=== PATIENT | male | born 1960 | race African-American/Black ===

== ENCOUNTER 2017-09-07 10:35 | Outpatient (CLI) | payer OTHER ==
[2017-09-07] MEDS ORDERED: Lidocaine 1% PF 10 ML AMP ONE (11:30)
[2017-09-07] MEDS ORDERED: Iopamidol 300 61% 50 ML VIAL FS ONE (11:30)
[2017-09-07] MEDS ORDERED: EPINEPHrine 1 MG/ML AMP ONE (11:30)
[2017-09-07] MEDS ORDERED: Gadobenate Dimeglumine 529 MG/1 ML (20ML VIAL) ONE ×2 (11:30→13:45)
--- NOTE | 2017-09-07 12:44 | RAD ---
ARTHROGRAM RIGHT SHOULDER: History: Internal derangement right shoulder. FINDINGS: [employer] radiographs show prominent osteophytosis of the inferior glenoid with some fragmentation. There are prominent degenerative changes of the undersurface of the acromion. After explaining the procedure and answering all question, the anterior aspect of the right shoulder was prepped and draped in the usual sterile fashion. Sterile technique, buffered local anesthesia, fl uoroscopic guidance and an anterior approach were used to carefully advance a 22 gauge needle into th e joint capsule at the level of the humeral head. Approximately 10 cc of a liquid mixture containing normal saline, 1% Lidocaine, iodinated contrast, and small amounts of gadolinium and epinephrine were then instilled into the joint capsule under fluoroscopic control. Needle was removed and spot images were obtained. The patient tolerated the procedure well and was sent to MRI in good condition for fu rther imaging. IMPRESSION: Technically successful right shoulder arthrogram revealing no full thickness rotator cuff tear. Post arthrogram MRI is pending. POS: [facility]
--- NOTE | 2017-09-07 15:17 | MRI ---
MRI RIGHT SHOULDER WITH CONTRAST: HISTORY: Pain. M25.51. COMPARISON: None. FINDINGS: BICEPS TENDON: There is interarticular interstitial tearing of the biceps tendon. This extends into the anterior la julieta. There is evidence of prior injury to the posterior inferior labrum. ROTATOR CUFF: There is a high-grade 50-75% undersurface tear of the mid supraspinatus tendon measuring 11 mm in AP dimension with fibers retracted to the mid humeral head. There is interstitial delamination of this tear along the myotendinous junction. There is also extensive deep undersurface tearing and retracti on cyst of the infraspinatus tendon. BONES: No fracture. No malalignment. Large traction cyst of the greater tuberosity. 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 MUSCLES: No significant muscle atrophy. IMPRESSION: 1. Extensive tearing of the intraarticular biceps tendon extending throughout the superior labrum. 2. Scarring of the posterior inferior labrum suggesting prior tear. 3. High-grade undersurface partial tearing of the mid fibrous supraspinatus tendon measuring 12 mm i n AP dimension with fibers retracted to the mid humeral head. No extension of fluid into the subacro mial/subdeltoid bursa. 4. 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 5. Large traction cyst of the greater tuberosity at the infraspinatus insertion. 6. No significant muscle atrophy. POS: [facility]
== END 2017-09-07 10:36 | disposition home or self-care (01) ==
LOC: RAD 10:35
PROVIDERS: ATTEND Orthopaedic Surgery
DX: M25.511 Pain in right shoulder (principal); S46.211A Strain of muscle, fascia and tendon of other parts of biceps, right arm, initial encounter; L94.8 Other specified localized connective tissue disorders; S46.811A Strain of other muscles, fascia and tendons at shoulder and upper arm level, right arm, initial encounter; M25.811 Other specified joint disorders, right shoulder; M62.89 Other specified disorders of muscle; M19.011 Primary osteoarthritis, right shoulder
CPT/HCPCS: 23350; A9579; J0171; J7050

== ENCOUNTER 2017-09-15 08:37 | Outpatient (CLI) | payer OTHER ==
[2017-09-15 10:25] LABS: Hemoglobin 12.4 g/dL (14.0-18.0); Mean Corpuscular HGB CONC 31.5 g/dL (32.0-36.0); Mean Corpuscular Hemoglobin 23.9 pg (27.0-31.0); Mean Platelet Volume 8.9 fL (7.4-10.4); Platelet Count 214 thou/uL (130-400); White Blood Cell (WBC) Count 5.4 thou/uL (4.8-10.8)
[2017-09-15 10:37] LABS: Anion Gap 14 mmol/L (10-20); BUN (Urea Nitrogen) 23 mg/dL (8.4-25.7); Calc. Creatinine Clearance 0 mL/min (70-130); Carbon Dioxide 24 mmol/L (22-29); Chloride 108 mmol/L (98-107); Estimated GFR-MDRD 67; Glucose 181 mg/dL (70-105); Potassium 3.9 mmol/L (3.5-5.1); Sodium 142 mmol/L (136-145)
--- NOTE | 2017-09-15 16:46 | EKG ---
Test Reason : Blood Pressure : / mmHG Vent. Rate : 061 BPM Atrial Rate : 061 BPM P-R Int : 210 ms QRS Dur : 094 ms QT Int : 420 ms P-R-T Axes : 047 020 004 degrees QTc Int : 422 ms Sinus rhythm with 1st degree A-V block Low voltage QRS Cannot rule out Anterior infarct , age undetermined Abnormal ECG When compared with ECG of 26-OCT-2006 09:29, ME interval has increased Confirmed by DR. Stephen JONAS ([id number]) on 09/15/2017 4:46:42 PM Referred By: MATEUS Confirmed By:DR. Stephen JONAS
== END 2017-09-15 08:38 | disposition home or self-care (01) ==
LOC: LABBT 08:37
PROVIDERS: ATTEND Orthopaedic Surgery
DX: Z01.818 Encounter for other preprocedural examination (principal); M75.41 Impingement syndrome of right shoulder; S46.211A Strain of muscle, fascia and tendon of other parts of biceps, right arm, initial encounter
CPT/HCPCS: 80048; 85027; 93005; 93010

== ENCOUNTER 2017-09-18 06:00 | Day surgery (SDC) | payer OTHER ==
[2017-09-15 09:09] VITALS: BMI 35.5
[2017-09-18] MEDS ORDERED: Midazolam HCl 2 mg/2 ml Vial ONE (06:37)
[2017-09-18] MEDS ORDERED: Fentanyl 100 MCG/2 ML VIAL ONE ×2 (06:37→07:21)
[2017-09-18] MEDS ORDERED: Bupivacaine/Epinephrine 0.25% 30 ML VIAL ONE (06:55)
[2017-09-18] MEDS ORDERED: Sodium Chloride 0.9% 0 ML ONE (06:55)
[2017-09-18] MEDS ORDERED: CEFAZOLIN/Water 2 GM/20 ML SYRINGE ONE (07:16)
[2017-09-18] MEDS ORDERED: Fentanyl 100 MCG/2 ML VIAL IV PRN (07:19)
[2017-09-18] MEDS ORDERED: HYDROcodone/Acetaminophen 10/325 mg Tablet PO PRN ×2 (07:19)
[2017-09-18] MEDS ORDERED: Ropivacaine 0.2% 550 ML 550 ML NERVE BLCK SCH (07:19)
[2017-09-18] MEDS ORDERED: traMADol HCl 50 MG TAB PO PRN ×2 (07:19)
[2017-09-18] MEDS ORDERED: Ondansetron HCl/PF 4 MG/2 ML Vial IVP PRN (07:19)
[2017-09-18] MEDS ORDERED: Zolpidem Tartrate 5 MG TAB PO PRN (07:19)
[2017-09-18] MEDS ORDERED: Promethazine HCl 25 MG/ML VIAL IM PRN (07:19)
--- NOTE | 2017-09-18 11:14 | OP ---
DATE OF OPERATION: 09/18/2017 PREOPERATIVE DIAGNOSES: 1. Severe impingement of the right shoulder. 2. Severe partial tearing and biceps tendonitis in the right shoulder. POSTOPERATIVE DIAGNOSES: 1. Severe impingement of the right shoulder. 2. Severe partial tearing and biceps tendonitis in the right shoulder. PROCEDURE: Arthroscopy of the right shoulder with subacromial decompression and biceps tenodesis. SURGEON: Dennis Garsia M.D. ANESTHESIA: General. TECHNIQUE: The patient was given preoperative IV antibiotics, taken to the operating room, placed in the supine position. Satisfactory general anesthesia was performed. The patient was placed in the left lateral decubitus position. All bony prominences were well-padded. The right upper extremity w as placed in traction and the right shoulder and upper extremity was sterilely prepped and draped in usual fashion. The right shoulder was scoped through the typical anterior and posterior portals. Th e patient was noted to have no significant arthritic changes in the shoulder joint. There was severe tendinitis and significant tearing of the biceps tendon at the superior glenoid and into the bicipit al groove. The labrum was inspected and was stable. There was no full tearing of the rotator cuff f rom the shoulder joint itself. A separate 2.5 cm incision was made over the bicipital groove and a b iceps tenodesis was performed using a #2 FiberWire and suturing the tendon to the soft tissue around the bicipital groove. A subacromial decompression was then performed initially using 90-degree arthr owand to clean up the bursitis and a high-speed tacho was used to thin down the undersurface of the ac romion, removed anterior and lateral spurring under the acromion. There was also some spurring on th e distal inferior aspect of the clavicle, which was removed with the atcho. The bursa over the rotato r cuff was excised. The rotator cuff was intact and did not require any other type repair. During t he procedure, all the debris was irrigated out of the shoulder joint and the subacromial space. The fascia over the bicipital groove was closed using 0 Vicryl. Fat and subcutaneous tissues were closed with 0 Vicryl and all the skin incisions closed with 3-0 Rapide. Sterile dressing was applied. The patient was taken out of traction. He was awakened, extubated, and transferred to the recovery room in stable condition. ESTIMATED BLOOD LOSS: Minimal. COMPLICATIONS: None. DISCHARGE MEDICATIONS: [place] 10 one every 6 hours as needed for pain, #60. Follow up in my office next week.
[2017-09-18] MEDS ORDERED: Ropivacaine 0.5% HCl/PF (150 MG/30 ML VIAL) ONE (11:43)
[2017-09-18] MEDS ORDERED: Ropivacaine 0.2% HCl/PF (40 MG/20 ML VIAL) ONE (11:43)
[2017-09-18] MEDS ORDERED: PROPOFOL 200 MG/20 ML VIAL ONE (12:27)
[2017-09-18] MEDS ORDERED: ePHEDrine/0.9% NaCl/PF SYRINGE 50 mg/10 ml ONE (12:27)
== END 2017-09-18 11:05 | disposition home or self-care (01) ==
LOC: SDC 06:00
PROVIDERS: ATTEND Orthopaedic Surgery
PROC: 0LS14ZZ Reposition Right Shoulder Tendon, Percutaneous Endoscopic Approach (ICD-10-PCS; principal; 2017-09-18)
DX: M75.41 Impingement syndrome of right shoulder (principal); S46.211A Strain of muscle, fascia and tendon of other parts of biceps, right arm, initial encounter; M75.21 Bicipital tendinitis, right shoulder; E11.9 Type 2 diabetes mellitus without complications; F41.9 Anxiety disorder, unspecified; I10 Essential (primary) hypertension; G47.30 Sleep apnea, unspecified; E78.5 Hyperlipidemia, unspecified; E66.9 Obesity, unspecified; Z68.35 Body mass index [BMI] 35.0-35.9, adult; Z79.84 Long term (current) use of oral hypoglycemic drugs; Z79.1 Long term (current) use of non-steroidal anti-inflammatories (NSAID); Z79.899 Other long term (current) drug therapy; Z87.891 Personal history of nicotine dependence
CPT/HCPCS: 36416; A4216; A4306; C1713; J2250; J2704; J2795; J3010

== ENCOUNTER 2024-03-08 14:20 | Outpatient (CLI) | payer BC | END 2024-03-08 14:21 | disposition home or self-care (01) | LOC: ULT 14:20 | PROVIDERS: ATTEND Student in an Organized Health Care Education/Training Program | DX: M79.89 Other specified soft tissue disorders (principal) | CPT/HCPCS: 76999 ==